=== PATIENT | male | born 1945 | race Caucasian/White ===

== ENCOUNTER 2019-03-02 11:29 | Day surgery (SDC) | payer OTHER ==
[~2019-03-02] VITALS: Ht 182.9 cm; Wt 87.5 kg
[~2019-03-02 11:29] MED LIST: ALLOPURINOL100 MG PO; B COMPLEX1 EACH PO; CRESTOR10 MG PO; FISH OIL 1,2001 EAC1 PO; FLAGYL500 MG PO; MULTIVITAMINS1 EAC7 PO; NORCO 5-325 TA1 EACH PO; VITAMIN C1000 MG PO
[2019-03-02] MEDS ORDERED: METFORMIN HCL1000 MG PO (11:49)
--- NOTE | 2019-03-02 12:59 | NUR ---
03/02/19 Ghislaine9 Antonette Chanel 1255-PATIENT ARRIVED TO PACU ON 3L NC PLACED ON 2L AWAKE DROWSY RR EVEN. PATIENT LAYING LEFT LATERAL ABDOMEN SOFT. PASSING GAS. DENIES PAIN OR NAUSEA. DROWSY BACK TO SLEEP.
--- NOTE | 2019-03-02 20:01 | OR ---
[facility] [address] [place], [place] [address] Signed DATE OF OPERATION: 03/02/2019 SURGEON: Ra Squires MD PREOPERATIVE DIAGNOSES: 1. Colon surveillance. 2. History of hyperplastic polyp 2012. POSTOPERATIVE DIAGNOSES: 1. Scattered diverticula. 2. Polyps x3 (excised). PROCEDURE PERFORMED: Total colonoscopy to cecum with cold snare polypectomy x1 and cold morcellation polypectomy x2. ANESTHESIA: Intravenous sedation, fentanyl 100 mcg, Versed 6 mg. INDICATION: This 73-year-old white man is a patient of SARAI Servin at [facility]. He last underwent colonoscopy in 2012. At which time, he had a hyperplastic polyp. He is currently symptom free. He is admitted at this time to undergo colonoscopy. He understands the risks of bleeding, infection, and perforation. FINDINGS: The prep was excellent. Complete colonoscopy was undertaken to the cecum without question. He had scattered diverticula throughout. There is a small sessile polyp at the hepatic flexure, which was excised with cold snare polypectomy technique. An additional small polyp at 25 cm was noted. This was excised as well. Hyperplastic polyps were noted of the rectosigmoid. All were excised. DESCRIPTION OF PROCEDURE: The patient was brought to the endoscopy suite and placed in lateral decubitus position given intravenous sedation to the point of slurred speech and nystagmus. Digital rectal examination was normal. An Olympus video colonoscope was passed in the rectum and manipulated throughout the colon ultimately intubating the cecum itself. The ileocecal valve and appendiceal orifice were normal. The scope was withdrawn from that point and at approximately the Electronically Signed By: RA SQUIRES MD 03/02/192000 PATIENT NAME: FRANCIS SMITH OPERATIVE REPORT DATE OF : 47 REPORT #: [id number] PHYSICIAN: RA SQUIRES MD PCP: LENNY ESQUIVEL REPORT IS CONFIDENTIAL AND NOT TO BE RELEASED WITHOUT AUTHORIZATION [facility] [address] [place], [place] [address] Signed hepatic flexure, there was a small sessile polyp. This was excised with cold snare technique without problem. Specimen was passed for pathology. The scope was further withdrawn. Diverticula were noted in the left colon to a degree and at approximately 25 cm from the anal verge, a small polyp noted on a mucosal fold. Narrow band imaging confirmed it to be adenomatous most likely. This was excised with cold morcellation technique. Further withdrawal of scope showed some hyperplastic appearing polyps of the rectosigmoid, which were excised though quite unlikely to be adenomatous. Retroflexed view was normal. The scope was removed. The patient was taken to recovery room in good condition. CONCLUDING DIAGNOSIS: Polyps x3, all excised. PLAN: Recommend repeat colonoscopy in 5 years, sooner if clinically indicated. He will return to the ongoing care of SARAI Servin at [facility]. MD TRACEY Conway/DIMITRIOS /[id number] cc: SARAI Servin Copies: LENNY ESQUIVEL ~ Electronically Signed By: RA SQUIRES MD 03/02/192000 PATIENT NAME: FRANCIS SMITH OPERATIVE REPORT DATE OF : 47 REPORT #: [id number] PHYSICIAN: RA SQUIRES MD PCP: LENNY ESQUIVEL REPORT IS CONFIDENTIAL AND NOT TO BE RELEASED WITHOUT AUTHORIZATION
--- NOTE | 2019-03-03 15:24 | PATH ---
[facility] [address] [place], [place] [address] Signed SPECIMEN(S): A HEPATIC FLEXURE SPECIMEN(S): B RECTO SIGMOID SPECIMEN(S): C COLON POLYP AT 25 CM SPECIMEN SOURCE: A. HEPATIC FLEXURE B. RECTO SIGMOID C. COLON POLYP AT 25 CM CLINICAL HISTORY: History of colon polyps. Postop: Polyps. MICROSCOPIC DESCRIPTION: Histologic sections of all submitted blocks are examined by light microscopy. These findings, together with the gross examination, support the pathologic diagnosis. FINAL PATHOLOGIC DIAGNOSIS: A. Mucosa, colon, hepatic flexure, biopsy: - Tubular adenoma. B. Mucosa, rectosigmoid area, biopsy: - No microscopic pathologic diagnosis (See comment). C. Mucosa, colon at 25 cm, biopsy: - Hyperplastic polyp. COMMENT: B Multiple levels over three slides are examined. No hyperplastic or adenomatous change is seen. LJA:glc:C2NR GROSS DESCRIPTION: Three specimens are received in three containers, labeled "MM." A. The specimen, labeled "MM, hepatic flexure polyp," is received in formalin and consists of a 0.4 cm in greatest dimension irregular osborn-white soft tissue fragment. The specimen is entirely submitted in cassette (A1). B. The specimen, labeled "MM, rectosigmoid hyperplastic polyp," is received in formalin and consists of two osborn-white soft tissue fragments ranging from 0.2-0.3 cm in greatest dimension. The specimen is entirely submitted in cassette (B1). C. The specimen, labeled "MM, colon polyp at 25 cm," is received in formalin and consists of a 0.3 cm in greatest dimension irregular osborn-white soft tissue PATIENT NAME: FRANCIS SMITH PATHOLOGY DATE OF : 47 REPORT #: [id number] PHYSICIAN: STEVEN VIZCAINO PCP: LENNY ESQUIVEL REPORT IS CONFIDENTIAL AND NOT TO BE RELEASED WITHOUT AUTHORIZATION [facility] [address] [place] [address] Signed fragment. The specimen is entirely submitted in cassette (C1). AR (under the direct supervision of a pathologist) The Gross Description was prepared using a voice recognition system. The report was reviewed for accuracy; however, sound-alike word errors, addition and/or deletions may occur. If there is any question about this report, please contact Client Services. PERFORMING LABORATORY: The technical component was performed by [facility] [employer] [address] (Home Visitor: Danitza Mesa MD; CLIA# [id number]). Professional interpretation was performed by [employer] [facility], [address] [address] (Home Visitor: Best Gómez MD; CLIA# [id number]). Diagnostician: Best Gómez MD Pathologist Electronically Signed 03/03/2019 Copies: ~ PATIENT NAME: FRANCIS SMITH PATHOLOGY DATE OF : 46 REPORT #: [id number] PHYSICIAN: STEVEN VIZCAINO PCP: LENNY ESQUIVEL REPORT IS CONFIDENTIAL AND NOT TO BE RELEASED WITHOUT AUTHORIZATION
== END 2019-03-02 13:35 | disposition home or self-care (01) ==
LOC: DS 11:29 → OPS 11:29 → DS 13:00 → OPS 13:35
PROVIDERS: Surgery
PROC: 0DBE8ZZ Excision of Large Intestine, Via Natural or Artificial Opening Endoscopic (ICD-10-PCS; 2019-03-02)
PROC: 0DBN8ZZ Excision of Sigmoid Colon, Via Natural or Artificial Opening Endoscopic (ICD-10-PCS; 2019-03-02)
PROC: 0DBL8ZZ Excision of Transverse Colon, Via Natural or Artificial Opening Endoscopic (ICD-10-PCS; principal; 2019-03-02 13:00)
DX: Z12.11 Encounter for screening for malignant neoplasm of colon (principal); D12.3 Benign neoplasm of transverse colon; K63.5 Polyp of colon; K57.30 Diverticulosis of large intestine without perforation or abscess without bleeding; E11.9 Type 2 diabetes mellitus without complications; J45.909 Unspecified asthma, uncomplicated; G47.30 Sleep apnea, unspecified; Z86.010 Personal history of colon polyps
CPT/HCPCS: 99153; G0500; J2250; J2704; J3010; J7120

== ENCOUNTER 2021-06-26 11:44 | Day surgery (SDC) | payer OTHER ==
[~2021-06-26] VITALS: Ht 182.9 cm; Wt 83.5 kg
--- NOTE | ~2021-06-26 | OR ---
[facility] [address] [place], [place] [address] Draft DATE OF OPERATION: 06/26/2021 SURGEON: Ra Squires MD PREOPERATIVE DIAGNOSES: 1. Bowel habit changes. 2. History of polyps. POSTOPERATIVE DIAGNOSES: 1. Diverticulosis of sigmoid. 2. Two clusters of polyps; hepatic flexure and 80 cm. PROCEDURES: Total colonoscopy to cecum with cold morcellation polypectomy x2, cold snare polypectomy x4. ANESTHESIA: Intravenous sedation, fentanyl 100 mcg and Versed 4 mg. INDICATIONS: This 75-year-old white man is a patient of SARAI Servin at [facility] and known to me from the past and undergone colonoscopy three years ago in 2019, where he was noted to have two polyps, one of them hyperplastic and one of them adenomatous. He has had changes in his stool including episodic diarrhea, but no blood per rectum. He has no family history of colon cancer. He is admitted at this time to undergo colonoscopy, understanding the risks of bleeding, infection, and perforation. FINDINGS: The prep was excellent. Complete colonoscopy was undertaken. The cecum without question. Appendiceal orifice and ileocecal valve were well identified and normal. He had two clusters of polyps, one at the hepatic flexure and the other at 80 cm, both had several polyps together, were excised completely. Additionally, on retroflex view, he did have some internal hemorrhoidal change and certainly diverticulosis of the sigmoid and left colon with scattered diverticula throughout the entire colon. DESCRIPTION OF PROCEDURE: The patient was brought to the endoscopy suite and placed in lateral decubitus position given intravenous sedation to the point of slurred speech and nystagmus with full PATIENT NAME: FRANCIS SMITH OPERATIVE REPORT DATE OF : 47 REPORT #: [id number] PHYSICIAN: RA SQUIRES MD PCP: LENNY ESQUIVEL REPORT IS CONFIDENTIAL AND NOT TO BE RELEASED WITHOUT AUTHORIZATION [facility] [address] [place], [place] [address] Draft cardiopulmonary monitoring. Digital rectal examination was normal. The Olympus video colonoscope was passed into the rectum and manipulated throughout the colon noting diverticulosis in an extensive way in the sigmoid and left colon. The scope was ultimately advanced to the hepatic flexure, where a small polyp was noted, this was excised with cold snare technique. The scope was advanced to the cecum, where the ileocecal valve and appendiceal orifice were normal. The scope was withdrawn the hepatic flexure was the area of previous polypectomy, but also another small polyp, this was excised with cold morcellation technique. The scope was further withdrawn. At approximately 80 cm from the anal verge was a cluster of four polyps in aggregate, all excised with combination of techniques including cold snare x3 and cold morcellation x1. Further withdrawal of scope showed no other abnormality. Retroflexed view of the rectum showed internal hemorrhoids, not bleeding or otherwise problematic. Scope was straightened, withdrawn, and removed and the patient was taken to the recovery room in good condition. CONCLUDING DIAGNOSES: 1. Polyps x6 (excised). 2. Diverticulosis. PLAN: Recommend repeat colonoscopy in three years as the small size of polyps is not worrisome. We would recommend a fiber supplement or a high-fiber diet regarding bowel issues; those are mostly related to diverticulosis. He will return to the ongoing care of SARAI Servin at [facility]. MD TRACEY Conway/MANDAL /[id number] cc: SARAI Servin PATIENT NAME: FRANCIS SMITH OPERATIVE REPORT DATE OF : 47 REPORT #: [id number] PHYSICIAN: RA SQUIRES MD PCP: LENNY ESQUIVEL REPORT IS CONFIDENTIAL AND NOT TO BE RELEASED WITHOUT AUTHORIZATION [address] [address] Draft Copies: LENNY ESQUIVEL ~ PATIENT NAME: LUIS,FRANCIS E OPERATIVE REPORT DATE OF : 47 REPORT #: [id number] PHYSICIAN: RA SQUIRES MD PCP: LENNY ESQUIVEL REPORT IS CONFIDENTIAL AND NOT TO BE RELEASED WITHOUT AUTHORIZATION
[~2021-06-26 11:44] MED LIST changes: +METFORMIN HCL1000 MG PO
[2021-06-26] MEDS ORDERED: ZINC30 MG PO (12:30)
[2021-06-26] MEDS ORDERED: VITAMIN D310 MC1 PO (12:30)
[2021-06-26] MEDS ORDERED: VITAMIN B122500 MCG PO (12:31)
--- NOTE | 2021-06-28 13:51 | PATH ---
[facility] [address] [place], [place] [address] Signed SPECIMEN(S): A HEPATIC FLEXURE POLYP SPECIMEN(S): B COLON POLYP AT 80 CM X 3 SPECIMEN SOURCE: A. HEPATIC FLEXURE POLYP B. COLON POLYP AT 80 CM X 3 CLINICAL HISTORY: Colonoscopy. Change in bowel function; history of colon polyps. Postop: Colon polyps; diverticulosis, hemorrhoids. FINAL PATHOLOGIC DIAGNOSIS: A. Colon, hepatic flexure, polyp, polypectomy: - Colonic mucosa with polypoid hyperplasia. - Negative for dysplasia or malignancy. B. Colon, polyp at 80 cm, polypectomy: - Fragments of tubular adenoma. - Negative for high-grade dysplasia or malignancy. NAL:cml:C2NR MICROSCOPIC EXAMINATION: Histologic sections of all submitted blocks are examined by light microscopy. These findings, together with the gross examination, support the pathologic diagnosis. GROSS DESCRIPTION: Two specimens are received in two containers, labeled "MM." A. The specimen, labeled "MM, hepatic flexure polyp," is received in formalin and consists of three osborn soft tissue fragments that measure 0.2-0.3 cm in greatest dimension. The specimen is entirely submitted in cassette (A1). B. The specimen, labeled "MM, colon polyp at 80 cm," is received in formalin and consists of five osborn soft tissue fragments that measure 0.1-0.3 cm in greatest dimension. The specimen is entirely submitted in cassette (B1). JS (under the direct supervision of a pathologist) The Gross Description was prepared using a voice recognition system. The report was reviewed for accuracy; however, sound-alike word errors, addition and/or deletions may occur. If there is any question about this report, please contact Client Services. PATIENT NAME: FRANCIS SMITH PATHOLOGY DATE OF : 47 REPORT #: [id number] PHYSICIAN: STEVEN PATHOLOGY PCP: LENNY ESQUIVEL REPORT IS CONFIDENTIAL AND NOT TO BE RELEASED WITHOUT AUTHORIZATION [facility] [address] [place] [id number] Signed PERFORMING LABORATORY: The technical component was performed by [employer], [address] [place] [address] (Private Duty Rn: Danitza Mesa MD; CLIA# [id number]). Professional [facility], [address] [place] [id number] (CLIA# [id number]). Diagnostician: Roshni Grove MD Pathologist Electronically Signed 06/28/2021 Copies: ~ PATIENT NAME: FRANCIS SMITH PATHOLOGY DATE OF : 47 REPORT #: [id number] PHYSICIAN: STEVEN PATHOLOGY PCP: LENNY ESQUIVEL REPORT IS CONFIDENTIAL AND NOT TO BE RELEASED WITHOUT AUTHORIZATION
== END 2021-06-26 16:07 | disposition home or self-care (01) ==
LOC: OPS 11:44 → DS 11:49 → OPS 13:00 → DS 13:00 → OPS 16:07
PROVIDERS: ATTEND Surgery
PROC: 0DBL8ZX Excision of Transverse Colon, Via Natural or Artificial Opening Endoscopic, Diagnostic (ICD-10-PCS; 2021-06-26)
PROC: 0DBL8ZX Excision of Transverse Colon, Via Natural or Artificial Opening Endoscopic, Diagnostic (ICD-10-PCS; principal; 2021-06-26 13:00)
DX: R19.4 Change in bowel habit (principal); D12.6 Benign neoplasm of colon, unspecified; K57.30 Diverticulosis of large intestine without perforation or abscess without bleeding; E11.9 Type 2 diabetes mellitus without complications; J45.909 Unspecified asthma, uncomplicated; G47.30 Sleep apnea, unspecified
CPT/HCPCS: 99153; G0500; J2250; J3010; J7121

== ENCOUNTER 2021-09-07 07:00 | Emergency (ER) | payer MEDICARE, OTHER ==
[~2021-09-07] VITALS: Ht 182.9 cm; Wt 87.5 kg
[~2021-09-07 07:00] MED LIST changes: +VITAMIN B122500 MCG PO; +VITAMIN D310 MC1 PO; +ZINC30 MG PO
[2021-09-07] MEDS ORDERED: MECLIZINE HCL25 MG PO (09:30)
[2021-09-07] MEDS ORDERED: ONDANSETRON ODT8 MG PO (09:30)
--- NOTE | 2021-09-07 14:55 | EKG ---
[facility] [facility] [address] [facility] [place] [address] Signed Normal sinus rhythm Nonspecific intraventricular block Abnormal ECG No previous ECGs available Confirmed by MAREI ESPINOZA MD ([id number]) on 09/07/2021 2:55:07 PM Electronically Signed By: MARIE ESPINOZA MD 09/07/21 1455 PATIENT NAME: FRANCIS SMITH Electrocardiogram DATE OF : 47 PHYSICIAN: MARIE ESPINOZA MD REPORT #: [id number] REPORT IS CONFIDENTIAL AND NOT TO BE RELEASED WITHOUT AUTHORIZATION
== END 2021-09-07 09:50 | disposition home or self-care (01) ==
LOC: ED 07:00
DX: R42 Dizziness and giddiness (principal); G93.0 Cerebral cysts; M10.9 Gout, unspecified; Z87.891 Personal history of nicotine dependence; Z79.899 Other long term (current) drug therapy; Z79.84 Long term (current) use of oral hypoglycemic drugs
CPT/HCPCS: 70450; 80053; 81001; 85025; 93005; 93010; 96374; 99284-25; A9270; J2405; J7030

== ENCOUNTER 2025-02-28 11:48 | Day surgery (SDC) | payer OTHER ==
[~2025-02-28] VITALS: Ht 182.9 cm; Wt 81.6 kg
[~2025-02-28 11:48] MED LIST changes: +GABAPENTIN600 MG PO; +IBLOOD GLUCOSE TEST STRIP 1 EA TEST VI PRN; +LACTATED RINGER'S 1,000 ML IV SCH; +LIDOCAINE HCL 1% 5 ML SDV INJ ONE; +MECLIZINE HCL25 MG PO; +MIDAZOLAM HCL 5 MG/5 ML VIAL IV PRN; +ONDANSETRON ODT8 MG PO; +fentaNYL citrate 100 MCG/2 ML VIAL IV PRN
[2025-02-28 12:08] VITALS: BP 130/68
[2025-02-28] MEDS ORDERED: fentaNYL citrate 100 MCG/2 ML VIAL ONE (12:51)
[2025-02-28] MEDS ORDERED: MIDAZOLAM HCL 5 MG/5 ML VIAL ONE (12:51)
--- NOTE | 2025-02-28 14:06 | NUR ---
02/28/[address] PRESENTS TO THE BEDSIDE AND IS SPEAKING WITH THE PATIENT. PATIENT'S QUESTIONS ARE ANSWERED. PATIENT REPOSITIONS HIMSELF ONTO HIS BACK. HOB IS ELEVATED. HE DOES WELL WITH THAT.
[2025-02-28 14:32] VITALS: BP 118/74
--- NOTE | 2025-03-01 11:41 | OR ---
[facility] [address] [place], [place] [address] Signed DATE OF OPERATION: 02/28/2025 SURGEON: Ra Suqires MD PREOPERATIVE DIAGNOSIS: History of polyps 2021. POSTOPERATIVE DIAGNOSES: 1. Sigmoid diverticulosis. 2. Polyps x2 (cecum and right colon). PROCEDURE: Total colonoscopy to cecum with cold morcellation polypectomy x2. ANESTHESIA: Intravenous sedation, fentanyl 100 mcg, and Versed 4 mg. INDICATION: This 79-year-old white man is patient of SARAI Servin at the [facility]. He underwent colonoscopy by me last in 2021. He has no current symptoms of bleeding, diarrhea, or constipation. He did have two polyps noted on his colonoscopy in 2021, and on that basis, a followup in this time interval had been recommended then. He is admitted at this time to undergo colonoscopy on the basis of that as he has no symptoms currently. The risk of colonoscopy including, but not limited to bleeding, infection, and perforation were reviewed with him. He understands and wished to proceed. FINDINGS: The prep was quite good. Complete colonoscopy was undertaken to the cecum with intubation of the cecum. Diverticula were noted of the sigmoid and left colon. There were two very small polyps of the right colon, one in the cecum, the other in the ascending colon, both excised completely. There were no other findings of concern. DESCRIPTION OF PROCEDURE: The patient was brought to the endoscopy suite and placed in lateral decubitus position, given intravenous sedation to the point of slurred speech and nystagmus with full cardiopulmonary monitoring. Digital rectal examination was normal. An Olympus video colonoscope was passed in the rectum and manipulated throughout the colon noting diverticula of the sigmoid colon. The scope was ultimately advanced to the cecum. Upon close inspection, there was a small polyp of the cecum, which was excised with cold Electronically Signed By: RA SQUIRES MD 03/01/25 1141 PATIENT NAME: FRANCIS SMITH OPERATIVE REPORT DATE OF : 47 REPORT #: [id number] PHYSICIAN: RA SQUIRES MD PCP: OTHER PCP REPORT IS CONFIDENTIAL AND NOT TO BE RELEASED WITHOUT AUTHORIZATION [facility] [address] [place], [place] [address] Signed morcellation technique. Further withdrawal showed another similar polyp in the right colon similarly excised. Withdrawal of scope showed no other abnormalities throughout until the sigmoid where diverticula were once again noted. Retroflexed view of the rectum did show internal hemorrhoidal changes without sign of bleeding or other abnormality. The scope was straightened, withdrawn, and removed and the patient was taken to recovery room in good condition. CONCLUDING DIAGNOSES: 1. Small polyps x2, cecum and right colon excised. 2. Diverticula of sigmoid. PLAN: Recommend repeat colonoscopy in 7-10 years based on current guidelines. Can be done sooner if symptoms should occur. We will recommend high-fiber diet based on hemorrhoidal disease. He will return to the ongoing care of SARAI Servin at the [facility]. MD TRACEY Conway/DIMITRIOS /[id number] cc: SARAI Servin Copies: LENNY ESQUIVEL ~ Electronically Signed By: RA SQUIRES MD 03/01/25 1141 PATIENT NAME: FRANCIS SMITH Macey OPERATIVE REPORT DATE OF : 47 REPORT #: [id number] PHYSICIAN: RA SQUIRES MD PCP: OTHER PCP REPORT IS CONFIDENTIAL AND NOT TO BE RELEASED WITHOUT AUTHORIZATION
== END 2025-02-28 14:39 | disposition home or self-care (01) ==
LOC: DS 11:48
PROVIDERS: ATTEND Surgery
PROC: 0DBF8ZZ Excision of Right Large Intestine, Via Natural or Artificial Opening Endoscopic (ICD-10-PCS; 2025-02-28)
PROC: 0DBH8ZZ Excision of Cecum, Via Natural or Artificial Opening Endoscopic (ICD-10-PCS; principal; 2025-02-28 13:00)
DX: Z12.11 Encounter for screening for malignant neoplasm of colon (principal); D12.0 Benign neoplasm of cecum; D12.2 Benign neoplasm of ascending colon; K57.30 Diverticulosis of large intestine without perforation or abscess without bleeding; E11.9 Type 2 diabetes mellitus without complications; G47.30 Sleep apnea, unspecified; J45.909 Unspecified asthma, uncomplicated; Z86.0101 Personal history of adenomatous and serrated colon polyps; Z86.0102 Personal history of hyperplastic colon polyps; Z79.84 Long term (current) use of oral hypoglycemic drugs
CPT/HCPCS: 88305; 99153; G0500; J2250; J3010; J7121